=== PATIENT | male | born 1985 | race African-American/Black ===

== ENCOUNTER 2018-01-08 01:09 | Emergency (ER) | payer SELFPAY ==
[~2018-01-08] VITALS: Ht 180.3 cm; Wt 78.0 kg
[2018-01-08] MEDS ORDERED: LANTUS SOL100 UNIT/1 SQ (01:49)
[2018-01-08] MEDS ORDERED: FOLIC ACID1 M1 (01:50)
[2018-01-08] MEDS ORDERED: OXYCODONE HCL5 M2 (01:51)
--- NOTE | 2018-01-08 02:50 | RADIOLOGY REPORT ---
EXAMINATION: XR CHEST CLINICAL INFORMATION: Sickle cell disease with chest pain COMPARISON: None TECHNIQUE: 2 views of the chest were obtained. FINDINGS: The lungs are well expanded. There is no focal consolidation, edema, or effusion. Mild bronchial wall thickening present. No pneumothorax. The cardiomediastinal silhouette is at the upper limit of normal in size. No acute osseous abnormality. Median sternotomy wires noted. IMPRESSION: No consolidation. Bronchial wall thickening can be seen with a small airways process such as asthma or atypical/viral infection.
[2018-01-08 04:02] VITALS: BP 132/67
--- NOTE | 2018-01-08 04:42 | ED GENERAL ADULT ---
History of Present Illness General Chief Complaint: General Adult Stated Complaint: " I'M HAVING SICKLE CELL CRISIS" PER PT Source: patient, old records Exam Limitations: no limitations Vital Signs & Intake/Output Vital Signs & Intake/Output Vital Signs Date Time Temp Pulse Resp B/P B/P Pulse O2 O2 Flow FiO2 Mean Ox Delivery Rate 01/08 0402 98.3 72 18 132/67 98 Room Air 01/08 0143 98.3 82 18 132/66 97 Room Air Allergies Coded Allergies: ceftriaxone (From ROCEPHIN) (Severe, CP 01/08/18) Uncoded Allergies: RITALIN (Intermediate, ANXIETY 01/08/18) Reconcile Medications Folic Acid (Unknown Strength) TABLET (Unknown Dose) SUPPLEMENT (Reported) Insulin Glargine,Hum.rec.anlog (Lantus Solostar) 100 UNIT/ML (3 ML) INSULN.PEN 30 UNITS SQ QPM DIABETES (Reported) Oxycodone HCl (Unknown Strength) CAPSULE (Unknown Dose) PAIN (Reported) Triage Note: TRIAGE: PATIENT TO ER FROM HOME REPORTING "SICKLE CELL CRISIS X 2 DAYS, TRYING TO FIGHT IT AT HOME." PATIENT REPORTS USUALLY GETS RELIEF FROM 2MG DILAUDID. DENIES N/V. Triage Nurses Notes Reviewed? yes Onset: 2 days Duration: day(s):, constant, continues in ED, getting worse Timing: recent history Injury Environment: home Severity: severe Modifying Factors: Improves With: medication. Worsens With: movement. Associated Symptoms: back pain, chest pain HPI: 2 days prior to admission patient complains of recurrent sickle cell crisis with right-sided chest pain and upper back pain. He denies fever chills nausea vomiting diarrhea abdominal pain shortness of breath headache dysuria rash bleeding. Past History Travel History Traveled to [place] past 21 day No Medical History Any Pertinent Medical History? 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 No Review of Systems Review of Systems Constitutional: Reports: see HPI, malaise. EENTM: Reports: no symptoms. Respiratory: Reports: no symptoms. Cardiovascular: Reports: see HPI, chest pain. GI: Reports: no symptoms. Genitourinary: Reports: no symptoms. Musculoskeletal: Reports: see HPI, back pain. Skin: Reports: no symptoms. Neurological/Psychological: Reports: no symptoms. Hematologic/Endocrine: Reports: no symptoms. Immunologic/Allergic: Reports: no symptoms. All Other Systems: Reviewed and Negative Physical Exam Physical Exam General Appearance: well developed/nourished, alert, awake, anxious, severe distress, thin Head: atraumatic, normal appearance Eyes: Bilateral: normal appearance, PERRL, EOMI. Ears, Nose, Throat: normal pharynx, normal ENT inspection, hearing grossly normal Neck: normal inspection, supple, full range of motion, no midline tenderness Respiratory: normal breath sounds, no respiratory distress, quiet respiration, lungs clear, right chest wall tenderness Cardiovascular: regular rate/rhythm, normal peripheral pulses, norml femoral pulses equa Peripheral Pulses: 4+ carotid (R), 4+ carotid (L) Gastrointestinal: normal bowel sounds, soft, non-tender, no organomegaly Back: normal inspection, decreased range of motion, no vertebral tenderness Extremities: normal inspection, normal capillary refill, normal range of motion, no edema Neurologic/Psych: no motor/sensory deficits, awake, alert, oriented x 3, normal gait Reflexes: 2+: bicep (R), bicep (L). Skin: intact, normal color, warm/dry Lymphatic: no anterior cervical nish Core Measures ACS in differential dx? No CVA/TIA Diagnosis: No Sepsis Present: No Sepsis Focused Exam Completed? No Progress Differential Diagnoses I considered the following diagnoses in my evaluation of the patient: sickle cell crisis Plan of Care: Orders Procedure Date/time Status EKG 01/08 202 Active Laboratory Tests 01/08/18 0202: Troponin I Cancelled, Retic Count Cancelled Initial ED EKG: RBBB, nonspecific ST T wave chg Rhythm Strip: normal sinus rhythm Comments: Nursing unable to obtain blood or IV. Patient declines further attempts. Departure Departure Time of Disposition: 441 Disposition: HOME OR SELF CARE Condition: Stable Clinical Impression Primary Impression: Sickle cell crisis Departure Forms: Customer Survey General Discharge Information Critical Care Note Critical Care Note Critical Care Time: non-applicable
== END 2018-01-08 04:51 ==
LOC: ERH 01:09
DX: D57.1 Sickle-cell disease without crisis (principal); R07.9 Chest pain, unspecified; M54.6 Pain in thoracic spine
CPT/HCPCS: 71046; 93005; 93010; 96372

== ENCOUNTER 2018-02-20 23:32 | Emergency (ER) | payer OTHER ==
[~2018-02-20] VITALS: Ht 180.3 cm; Wt 78.0 kg
[~2018-02-20 23:32] MED LIST: FOLIC ACID1 M1; LANTUS SOL100 UNIT/1 SQ; OXYCODONE HCL5 M2
--- NOTE | 2018-02-20 23:45 | ED GENERAL ADULT ---
History of Present Illness General Chief Complaint: General Adult Stated Complaint: " I'M HAVING SICKLE CELL CRISIS"\\ Source: patient Exam Limitations: no limitations Vital Signs & Intake/Output Vital Signs & Intake/Output Vital Signs Date Time Temp Pulse Resp B/P B/P Pulse O2 O2 Flow FiO2 Mean Ox Delivery Rate 02/21 0021 96 Room Air 02/20 2346 99.3 73 20 137/80 95 Room Air ED Intake and Output 02/21 0000 02/20 1200 Intake Total Output Total Balance Patient 172 lb Weight Weight Reported by Patient Measurement Method Allergies Coded Allergies: ceftriaxone (From ROCEPHIN) (Severe, CP 01/08/18) Uncoded Allergies: RITALIN (Intermediate, ANXIETY 01/08/18) Reconcile Medications Folic Acid (Unknown Strength) TABLET (Unknown Dose) SUPPLEMENT (Reported) Insulin Glargine,Hum.rec.anlog (Lantus Solostar) 100 UNIT/ML (3 ML) INSULN.PEN 30 UNITS SQ QPM DIABETES (Reported) Oxycodone HCl (Unknown Strength) CAPSULE (Unknown Dose) PAIN (Reported) Triage Nurses Notes Reviewed? yes Onset: Gradual Duration: day(s): Timing: recent history Injury Environment: home Severity: mild Modifying Factors: Improves With: rest. Associated Symptoms: back pain HPI: 32 yo gentleman h/o sickle cell disease, presents with back pain, right sided chest pain intermittent for the past 2 days. "I am having a pain crises... Usually dilaudid helps." He notes that he was seen at a hospital in [place] and was discharged 2 days ago. He notes that he has plenty of pain medications, "but that the pain came back." "They told me I need to get an MRI of my back too." He notes no fever, chills, dyspnea, wheezing. Past History Travel History Traveled to [place] past 21 day No Medical History Any Pertinent Medical History? 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 No Review of Systems Review of Systems Constitutional: Reports: no symptoms. EENTM: Reports: no symptoms. Respiratory: Reports: no symptoms. Cardiovascular: Reports: no symptoms. GI: Reports: no symptoms. Genitourinary: Reports: no symptoms. Musculoskeletal: Reports: no symptoms. Skin: Reports: no symptoms. Neurological/Psychological: Reports: no symptoms. Hematologic/Endocrine: Reports: no symptoms. Immunologic/Allergic: Reports: no symptoms. All Other Systems: Reviewed and Negative Physical Exam Physical Exam General Appearance: well developed/nourished, mild distress Head: atraumatic, normal appearance Eyes: Bilateral: normal appearance, other (MILD JAUNDICE). Ears, Nose, Throat: normal pharynx, normal ENT inspection Neck: normal inspection, supple, full range of motion Respiratory: normal breath sounds, no respiratory distress, quiet respiration, right sided chest wall tenderness to palpation. Cardiovascular: regular rate/rhythm Gastrointestinal: normal bowel sounds, soft, non-tender, no organomegaly Back: normal inspection, muscle spasm, no vertebral tenderness, no sign of abscess, induration, erythema in back. focal muscle spasm and tenderness to palpation on right thoracic/trapezius area. no focal bony tenderness. Extremities: normal inspection, normal capillary refill, normal range of motion, no edema Neurologic/Psych: no motor/sensory deficits, awake, alert, oriented x 3 Skin: intact, normal color, warm/dry Core Measures ACS in differential dx? No CVA/TIA Diagnosis: No Sepsis Present: No Sepsis Focused Exam Completed? No Progress Differential Diagnoses I considered the following diagnoses in my evaluation of the patient: sickle cell pain crises vs other. Plan of Care: Orders Procedure Date/time Status TROPONIN LEVEL 02/20 2341 Active COMPREHENSIVE METABOLIC PANEL 02/20 2341 Active CBC WITHOUT DIFFERENTIAL 02/20 2341 Active EKG 02/20 2341 Active Current Medications Sig/Natalia Start time Last Medication Dose Stop Time Status Admin Hydromorphone HCl 1 MG ONCE ONE 02/21 0115 UNVr (Dilaudid) 02/21 0116 Hydromorphone HCl 1 MG ONCE ONE 02/21 0045 UNVr 02/21 (Dilaudid) 02/21 0046 0044 Laboratory Tests 02/20/18 2341: Troponin I Cancelled, CBC w Diff Cancelled, WBC Cancelled, RBC Cancelled, Hgb Cancelled, Hct Cancelled, MCV Cancelled, MCH Cancelled, MCHC Cancelled, RDW Cancelled, Plt Count Cancelled, MPV Cancelled Diagnostic Imaging: Viewed by Me: Radiology Read. Discussed w/RAD: Radiology Read. CXR Impression: PATIENT: DARA CHIU PRESENT AGE: 32 PATIENT ACCOUNT NO: [id number] : 84 LOCATION: [facility] ORDERING PHYSICIAN: Bryant Beltran MD SERVICE DATE: 02/20/18048 EXAM TYPE: RAD - XRY- PORTABLE CHEST XRAY EXAMINATION: XR PORTABLE CHEST CLINICAL INFORMATION: Sickle cell disease. COMPARISON: 01/08/2018 TECHNIQUE: Portable frontal view of the chest was obtained. FINDINGS: Median sternotomy wires noted. The cardiac silhouette is prominent in size, somewhat increased in conspicuity from the prior exam allowing for hypoventilatory study. No focal lung opacity identified. No pneumothorax or significant pleural effusion. Partially visualized mixed lytic/sclerotic appearance of the humeral heads, possibly reflecting sequela of bone infarcts. IMPRESSION: No focal lung consolidation. Cardiac silhouette is again prominent in size, though somewhat increased in conspicuity from the prior exam allowing for a hypoventilatory study. DICTATED BY: Yuri Whitt MD DATE/ TIME DICTATED:02/21/1837 PROFESSOR OF LEGAL STUDIES:FAVIOLA DATE/TIME TRANSCRIBED: 02/21/1837 CONFIDENTIAL, DO NOT COPY WITHOUT APPROPRIATE AUTHORIZATION. < Electronically signed in Other Vendor System> SIGNED BY: Yuri Whitt MD 02/21/18 0044 Initial ED EKG: rbbb, lvh, sinus Departure Departure Disposition: HOME OR SELF CARE Condition: Stable Clinical Impression Primary Impression: Sickle cell pain crisis Referrals: Patient Has No Primary Care Dr (PCP/Family) Departure Forms: Customer Survey General Discharge Information Comments 02/21/18, 1:10am.... after multiple attempts, iv access and blood draws unsuccessful. He declines a central line or groin line. He would prefer to have one more dose of dilaudid, take his oral pain meds at home. He will return if his symptoms worsen. Critical Care Note Critical Care Note Critical Care Time: non-applicable
--- NOTE | 2018-02-21 00:44 | RADIOLOGY REPORT ---
EXAMINATION: XR PORTABLE CHEST CLINICAL INFORMATION: Sickle cell disease. COMPARISON: 01/08/2018 TECHNIQUE: Portable frontal view of the chest was obtained. FINDINGS: Median sternotomy wires noted. The cardiac silhouette is prominent in size, somewhat increased in conspicuity from the prior exam allowing for hypoventilatory study. No focal lung opacity identified. No pneumothorax or significant pleural effusion. Partially visualized mixed lytic/sclerotic appearance of the humeral heads, possibly reflecting sequela of bone infarcts. IMPRESSION: No focal lung consolidation. Cardiac silhouette is again prominent in size, though somewhat increased in conspicuity from the prior exam allowing for a hypoventilatory study.
[2018-02-21 01:17] VITALS: BP 129/87
== END 2018-02-21 01:25 ==
LOC: ERH 23:32
DX: D57.00 Hb-SS disease with crisis, unspecified (principal); M54.9 Dorsalgia, unspecified; E11.9 Type 2 diabetes mellitus without complications; Z79.4 Long term (current) use of insulin
CPT/HCPCS: 71045; 93005; 93010; 96372